=== PATIENT | female | born 1935 | race Caucasian/White ===

== ENCOUNTER → 2017-05-06 | Outpatient (CLI) | payer MEDICARE, BC | END | disposition home or self-care (01) | LOC: HKI 13:40 | DX: M17.0 Bilateral primary osteoarthritis of knee (principal) | CPT/HCPCS: 73562; 73562-50 ==

== ENCOUNTER → 2017-06-03 | Outpatient (CLI) | payer MEDICARE, BC | END | disposition home or self-care (01) | LOC: HKI 13:35 | DX: M17.12 Unilateral primary osteoarthritis, left knee (principal) | CPT/HCPCS: 20610 ==

== ENCOUNTER → 2017-06-10 | Outpatient (CLI) | payer MEDICARE, BC | END | disposition home or self-care (01) | LOC: HKI 13:30 | DX: Z47.89 Encounter for other orthopedic aftercare (principal) | CPT/HCPCS: 20610 ==

== ENCOUNTER → 2017-06-17 | Outpatient (CLI) | payer MEDICARE, BC | END | disposition home or self-care (01) | LOC: HKI 13:46 | DX: R22.42 Localized swelling, mass and lump, left lower limb (principal) | CPT/HCPCS: 20610 ==

== ENCOUNTER → 2017-08-22 | Outpatient (CLI) | payer MEDICARE, BC | END | disposition home or self-care (01) | LOC: HKI 10:49 | DX: M17.12 Unilateral primary osteoarthritis, left knee (principal) | CPT/HCPCS: G0463 ==

== ENCOUNTER → 2017-12-19 | Outpatient (CLI) | payer MEDICARE, BC | END | disposition home or self-care (01) | LOC: HKI 10:57 | DX: M17.0 Bilateral primary osteoarthritis of knee (principal); Z85.3 Personal history of malignant neoplasm of breast | CPT/HCPCS: 20610; 73562-50 ==

== ENCOUNTER → 2018-03-10 | Outpatient (CLI) | payer MEDICARE, BC | END | disposition home or self-care (01) | LOC: HKI 14:06 | DX: M25.561 Pain in right knee (principal) | CPT/HCPCS: 20610 ==